=== PATIENT | female | born 1965 | race Caucasian/White ===

== ENCOUNTER → 2018-06-08 | Outpatient (CLI) | payer BC ==
--- NOTE | 2018-06-08 23:54 | KCIC ---
Indication:Left-sided pelvic pain and numbness. TECHNIQUE: Grayscale, color Doppler and spectral waveform images of the pelvis obtained. COMPARISON: None FINDINGS: The uterus is anteverted and measures 6.4 x 3.2 x 3.9 cm (longitudinal, AP, transverse). No free pelvic fluid. Endometrial stripe measures 3 mm in thickness and is within normal limits. Cervix within normal limits. The left ovary measures 1.6 x 1.6 x 0.9 cm and shows blood flow. Right ovaries are visualized. No apparent soft tissue mass seen in the right adnexa. Nonspecific calcifications are seen in the endometrial. IMPRESSION: 1. No visualization of right ovary. 2. Left ovary within normal limits. Electronically signed by: Talon Gonsalez DO (06/08/2018 11:50 PM) [facility]
== END | disposition home or self-care (01) ==
LOC: KCIC US 15:13
PROVIDERS: ATTEND Internal Medicine
DX: R10.2 Pelvic and perineal pain (principal); R20.0 Anesthesia of skin
CPT/HCPCS: 76830; 76856

== ENCOUNTER → 2018-06-11 | Outpatient (CLI) | payer BC ==
[~2018-06-11] MED LIST: GADOBUTROL 7.5 MMOL/7.5 ML VIAL IV ONE
--- NOTE | 2018-06-11 17:52 | KCIC ---
MRI of the Brain without and with Contrast 06/11/2018 Clinical History: Balance problems and intermittent numbness. Left arm weakness which is worsening. technique: Unenhanced T1-weighted and FLAIR sagittal and axial and FLAIR, T2-weighted, gradient echo and diffusion-weighted axial images of the brain were obtained. After the intravenous administration of 7.5 cc of Gadavist, enhanced T1-weighted axial, sagittal and coronal images of the brain were obtained. Findings: Comparison study is dated 04/11/2010. The ventricles are within normal limits in size and configuration. Patchy, confluent and multiple areas of abnormally increased signal intensity are seen within the periventricular, deep and subcortical white matter of both cerebral hemispheres on the FLAIR and T2-weighted images. These measure 2 mm to 1.6 cm in size. Their MRI appearance is nonspecific. They could represent areas of small vessel ischemic disease. They can be seen in the setting of a demyelinating disorder such as multiple sclerosis. They have increased in size and number slightly since the previous examination. No area of abnormal contrast enhancement is seen. No acute parenchymal abnormality is seen. No extra-axial fluid collection is noted. There is no MRI evidence of acute ischemia/infarction. Mild mucosal thickening is seen scattered throughout the paranasal sinuses. Normal flow voids are seen within the major vascular structures surrounding the brain parenchyma. IMPRESSION: Areas of abnormal signal intensity are seen within the white matter of both cerebral hemispheres which have a nonspecific MRI. They could represent areas of small vessel ischemic disease or could be seen in the setting a demyelinating disorder such as multiple sclerosis. They have progressed slightly since the previous examination. No area of abnormal contrast enhancement is noted. No acute parenchymal abnormality is seen. Electronically signed by: Shane López MD (06/11/2018 5:48 PM) [id number]
== END | disposition home or self-care (01) ==
LOC: KCIC MRI 14:25
PROVIDERS: ATTEND Internal Medicine
DX: R20.0 Anesthesia of skin (principal); R53.1 Weakness
CPT/HCPCS: 70553; A9585

== ENCOUNTER → 2018-07-29 | Outpatient (CLI) | payer BC ==
[~2018-07-29] MED LIST changes: +CONTRAST GIVEN. MC PRN; -GADOBUTROL 7.5 MMOL/7.5 ML VIAL IV ONE; +IOHEXOL 240 MG/ML 50ML VIAL. PO ONE; +IOHEXOL 300 MG/ML 100ML VIAL. IV ONE
--- NOTE | 2018-07-29 10:49 | KCIC ---
PQRS Compliance statement: One or more of the following individualized dose reduction techniques were utilized for this examination: 1. Automated exposure control. 2. Adjustment of the mA and/or kV according to patient size. 3. Use of iterative reconstruction technique. Indication:Left lower quadrant pain TECHNIQUE: CT abdomen and pelvis without and with IV contrast with multiplanar reformats. COMPARISON: None FINDINGS: Heart is normal in size. No pericardial or pleural effusion. Clear lung bases. Liver, gallbladder, pancreas, adrenals within normal limits. 1.3 x 1.1 cm no enhancing lesion is seen in the spleen (series 3 image 12). Too small to characterize low attenuating lesion is seen in the spleen measuring 7 mm (series 3 image 9). No nephrolithiasis or hydronephrosis. No free pelvic fluid or ascites. No enlarged retroperitoneal or pelvic adenopathy. Shotty mediastinal lymph nodes, nonspecific may be reactive. No bowel obstruction. Normal appendix. Anteverted uterus. Urinary bladder within normal limits. No pneumoperitoneum. No suspicious bony lesion. IMPRESSION: Couple of indeterminate splenic lesions. Differential diagnoses includes hamartomas, hemangiomas or complicated cysts. Short-term follow-up in [address] abdomen with IV contrast recommended. Electronically signed by: Talon Gonsalez DO (07/29/2018 10:45 AM) [id number]
== END | disposition home or self-care (01) ==
LOC: KCIC CT 08:21
PROVIDERS: ATTEND Internal Medicine
DX: R10.32 Left lower quadrant pain (principal)
CPT/HCPCS: 74178; Q9966; Q9967

== ENCOUNTER → 2019-02-09 | Outpatient (CLI) | payer BC ==
[~2019-02-09] MED LIST changes: -CONTRAST GIVEN. MC PRN; +GADOTERATE 7.5 MMOL/15ML VIAL. IVP ONE; -IOHEXOL 240 MG/ML 50ML VIAL. PO ONE; -IOHEXOL 300 MG/ML 100ML VIAL. IV ONE
--- NOTE | 2019-02-09 17:47 | KCIC ---
ABDOMEN WO/W CONTRAST Clinical Indication: Six-month follow-up of splenic lesions. Comparison: CT abdomen and pelvis with contrast July 29, 2018. TECHNIQUE: Routine multiplanar multiple pulse sequence images of the abdomen are obtained before and after 14 cc of Dotarem IV contrast. Findings: Inferior and posterior splenic lesion measures 12 mm. This lesion is T2 hyperintense and contains a thin septation, or alternatively may be 2 adjacent cysts. Anterior splenic lesion measures up to 10 mm. It is well-circumscribed, oval shaped, and T1 and T2 hypointense. Lesion is hypoenhancing on arterial and portal venous phases. On 5 minute delay postcontrast images, the lesion is less hypointense. Tiny cyst at the dome of the spleen is stable. Liver, gallbladder, pancreas, adrenal glands, and kidneys are unremarkable. Diffusion weighted and in and out of phase sequences unremarkable. Biliary tree and pancreatic duct are normal caliber. No abdominal ascites. No evidence of bowel obstruction. IMPRESSION: 1. Anterior splenic lesion is stable in size. Considerations remain hamartoma or atypical hemangioma. 2. Lesions at the dome of the spleen and in the posterior spleen are stable and are noted to be cysts. Electronically signed by: Jethro Fong MD (02/09/2019 5:44 PM) [id number]
== END | disposition home or self-care (01) ==
LOC: KCIC MRI 07:55
PROVIDERS: ATTEND Internal Medicine
DX: D73.89 Other diseases of spleen (principal)
CPT/HCPCS: 74183; A9575